=== PATIENT | male | born 1990 | race Caucasian/White ===

== ENCOUNTER 2024-12-24 15:22 | Emergency (ER) | payer SELFPAY ==
[~2024-12-24] VITALS: Ht 160 cm; Wt 71.7 kg
[2024-12-24] MEDS: ACETAMINOPHEN ES 500 MG TABLET PO ONE (16:00)
[2024-12-24] MEDS: IV NS 0.9% 1,000 ML BAG IV ONE (16:00)
[2024-12-24] MEDS: ONDANSETRON HCL/PF 4 MG/2 ML VIAL IVP ONE (16:00)
[2024-12-24] MEDS ORDERED: ONDANSETRON HCL/PF 4 MG/2 ML VIAL ONE (17:13)
[2024-12-24] MEDS ORDERED: ACETAMINOPHEN ES 500 MG TABLET ONE (17:13)
[2024-12-24] MEDS ORDERED: KETOROLAC TROMETHAMINE 15 MG/ML VIAL ONE (17:29)
[2024-12-24] MEDS: KETOROLAC TROMETHAMINE 15 MG/ML VIAL IV ONE (17:33)
[2024-12-24] MEDS ORDERED: NAPR500T6 PO (17:41)
[2024-12-24] MEDS ORDERED: CIPR7.5D9 LEFT EAR (17:43)
[2024-12-24 18:25] VITALS: BP 140/87; TEMP 98.5; O2SAT 100
== END 2024-12-24 18:27 | disposition home or self-care (01) ==
LOC: ER 15:30
DX: S80.812A Abrasion, left lower leg, initial encounter (principal); R51.9 Headache, unspecified; R42 Dizziness and giddiness; H72.92 Unspecified perforation of tympanic membrane, left ear; Z88.1 Allergy status to other antibiotic agents; V43.52XA Car driver injured in collision with other type car in traffic accident, initial encounter; Y93.89 Activity, other specified; Y92.488 Other paved roadways as the place of occurrence of the external cause; Y99.8 Other external cause status
CPT/HCPCS: 99285; 72125; 96374; 96361; 96375; 70450; J1885; J2405; J7030